=== PATIENT | male | born 1970 | race Two or more races ===

== ENCOUNTER 2025-03-13 19:14 | Inpatient (IN) | payer MEDICAID, OTHER ==
[~2025-03-13] VITALS: Ht 170.2 cm; Wt 83.7 kg
[2025-03-13] MEDS: HYDROcodone-ACET 5/325MG TAB PO ONE (20:48)
[2025-03-13] MEDS: IBUPROFEN 800 MG TAB PO ONE (20:48)
[2025-03-13 21:14] LABS: Alanine Aminotransferase 21 U/L (7-40); Albumin 4.7 g/dL (3.2-4.8); Alkaline Phosphatase 83 U/L (46-116); Anion Gap 9 (5-15); BUN/Creatinine Ratio 10.2 (10.0-20.0); Blood Urea Nitrogen 14 mg/dL (9-23); Calcium 9.6 mg/dL (8.7-10.4); Carbon Dioxide 27 mmol/L (20-31); Chloride 104 mmol/L (98-107); Potassium 3.9 mmol/L (3.5-5.1); Sodium 140 mmol/L (136-145); Total Protein 7.8 g/dL (5.7-8.2)
[2025-03-13 21:15] LABS: Bilirubin, Total 0.5 mg/dL (0.2-1.0); Hematocrit 45.7 % (41.0-53.0); Hemoglobin 16.1 g/dL (13.5-17.5); Mean Corpuscular Hemoglobin 29.7 pg (28.0-32.0); Mean Corpuscular Volume 84.3 fL (80.0-100.0); Nucleated Red Blood Cells % 0.0 %
[2025-03-13 21:26] LABS: Glucose 108 mg/dL (74-106)
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
[2025-03-13 22:59] LABS: INR 0.97 (0.9-1.15); Partial Thromboplastin Time 33.5 SEC (24.5-34.5); Prothrombin Time 10.3 sec (9.3-11.8)
[2025-03-13] MEDS: SODIUM CHLORIDE 0.9% 1,000 ML IV ONE (23:07)
[2025-03-13] MEDS: PIPERACILLIN-TAZOB 3.375GM 100 ML IV ONE (23:25)
[2025-03-13] MEDS ORDERED: MORPHINE SULFATE INJ 2 MG/ml SYRG IV PRN (23:30)
[2025-03-13] MEDS ORDERED: NITROGLYCERIN 0.4 MG SL TAB SL PRN (23:30)
[2025-03-13] MEDS ORDERED: DOCUSATE SOD 100 MG CAP PO PRN (23:30)
[2025-03-13] MEDS ORDERED: ONDANSETRON HCL 4 MG/2 ML VIAL IV PRN (23:30)
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
[2025-03-13 23:54] VITALS: O2SAT 100
[2025-03-14] VITALS (11 sets, daily range): BP systolic 106–133; BP diastolic 65–90; PULSE 53–98; RESP 14–36; TEMP 97.8–102.7; O2SAT 87–100
[2025-03-14] MEDS: SODIUM CHLORIDE 0.9% 1,000 ML IV SCH ×2 (00:23→18:24)
[2025-03-14] MEDS ORDERED: SODIUM CHLORIDE 0.9% 1,000 ML IV SCH (07:45)
[2025-03-14 08:26] LABS: Hematocrit 42.7 % (41.0-53.0); Hemoglobin 14.4 g/dL (13.5-17.5); Mean Corpuscular Hemoglobin 28.5 pg (28.0-32.0); Mean Corpuscular Volume 84.4 fL (80.0-100.0); Nucleated Red Blood Cells % 0.0 %
[2025-03-14 08:41] LABS: INR 1.02 (0.9-1.15); Partial Thromboplastin Time 34.9 SEC (24.5-34.5); Prothrombin Time 10.8 sec (9.3-11.8)
[2025-03-14 08:49] LABS: Alanine Aminotransferase 17 U/L (7-40); Albumin 4.0 g/dL (3.2-4.8); Alkaline Phosphatase 68 U/L (46-116); Anion Gap 10 (5-15); BUN/Creatinine Ratio 9.9 (10.0-20.0); Bilirubin, Total 0.5 mg/dL (0.2-1.0); Blood Urea Nitrogen 11 mg/dL (9-23); Calcium 8.7 mg/dL (8.7-10.4); Carbon Dioxide 23 mmol/L (20-31); Chloride 106 mmol/L (98-107); Glucose 105 mg/dL (74-106); Potassium 3.6 mmol/L (3.5-5.1); Sodium 139 mmol/L (136-145); Total Protein 6.7 g/dL (5.7-8.2)
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
[2025-03-14] MEDS ORDERED: ROCURONIUM 10MG/ML 10ML VIAL IV ONE (11:08)
[2025-03-14] MEDS ORDERED: fentaNYL CITRATE 100 MCG/2 ML VL ONE (11:16)
[2025-03-14] MEDS ORDERED: MIDAZOLAM HCL 2MG/2ML 2ml VIAL (1mg/ml) ONE (11:16)
[2025-03-14] MEDS: LIDOCAINE W/ EPINEPHRINE 1% 20ML VIAL ONE (12:13)
[2025-03-14] MEDS ORDERED: HYDROmorphone HCL 2 MG/ML VL/or syr ONE ×2 (12:14→13:44)
[2025-03-14] MEDS ORDERED: ONDANSETRON HCL 4 MG/2 ML VIAL ONE (12:41)
[2025-03-14] MEDS ORDERED: GLYCOPYRROLATE 0.2 MG/ML 1ML VIAL ONE (12:58)
[2025-03-14] MEDS ORDERED: PROPOFOL 10 MG/ML 20 ML IV ONE (12:59)
[2025-03-14] MEDS ORDERED: NEOSTIGMINE 1 MG/ML INJ (10mg/10ML VIAL) ONE (12:59)
[2025-03-14] MEDS ORDERED: ONDANSETRON HCL 4 MG/2 ML VIAL IV PRN (13:15)
[2025-03-14] MEDS ORDERED: HYDROmorphone HCL 2 MG/ML VL/or syr IV PRN (13:15)
[2025-03-14] MEDS ORDERED: ACETAMINOPHEN IV 100 ML IV ONE (13:44)
[2025-03-14] MEDS: ACETAMINOPHEN IV 1000 MG/100ML (10MG/ML) IV ONE (13:45)
--- NOTE | 2025-03-14 13:45 | DVHOP2 ---
Operative Report - 2 Report Details Date: 03/14/25 Preop Diagnosis: Acute appendicitis Postop Diagnosis: Gangrenous appendicitis Surgeon: Lia Posadas MD Microphone Operator: None Anesthesiologist: Dr. Dallas Anesthesia: General, Local Drains: 15 Armenian Hua drain Consent: The surgery and its risks including but not limited to infection, bleeding requiring possible blood transfusion with the risk of hepatitis or HIV infection, possible open surgery, possible perioperative [place] or stroke, possibility that the abdominal pain is caused by different intra-abdominal pathology other than acute appendicitis in which case we will proceed with the appendectomy if it is safe to do so and then treat the problem according to intraoperative findings were explained to the patient. All questions were answered to his satisfaction. He expressed verbal understanding and wished to proceed with the surgery. Complications: None Estimated Blood Loss: 30 mL Fluids: 1700 mL Name of Procedure Performed Laparoscopic appendectomy Procedure Details Procedure Details: After induction of general anesthesia, a Perkins catheter was placed by the OR nursing staff. Patient's abdomen was then prepped and draped in standard surgical fashion. A small infraumbilical incision was made and this incision was taken through the abdominal wall down to the fascia which was opened sharply. Peritoneum was then bluntly divided gaining access to the intra- abdominal cavity. Interrupted 0 Vicryl sutures were placed through the fascial incision and using an open technique, Iman trocar was introduced and secured using the Vicryl sutures. Abdomen was insufflated to 15 mmHg and camera was inserted. Visual examination of the intestine under the fascial incision appeared normal without injury. Under direct visualization, a 5 mm bladeless trocar was placed in the left lower quadrant and a 2nd 5 mm bladeless trocar was placed in the suprapubic region both under direct visualization. Examination of the right lower quadrant revealed diffuse phlegmon this changes. Small intestine had to be peeled off the peritoneum to revealed the tip of the appendix which appeared to be very dilated and inflamed. There was tremendous amount of inflammatory adhesions in the area and some time was taken to free up the terminal ileum from the appendix. The mesoappendix was very thickened. This was stapled and divided using an endovascular stapler towards the base of the appendix. However the base of the appendix appeared to be very inflamed as well as the tip of the cecum. Instead of attempting to divide the appendix at the cecum which would have required mobile fixation of the cecum which was basically adherent to the peritoneum due to inflammatory changes and also due to concern for possible perforation due to the thickened tissue in this area, instead perform partial cecectomy, an endo stapler was used to staple across the base of the pancreas as close to the cecum as possible however there was a small appendiceal that was left behind. The appendix was then removed from the abdominal cavity using an endo pouch bag and sent off the surgical field. Abdomen was then re-insufflated and staple line was examined. It appeared intact without bleeding or leaks. There was small amount of serosanguineous fluid collected in the pelvis which was aspirated. Pelvic area was then irrig ated until fluid was clear. A 15 Armenian Hua drain was placed into the pelvis and brought along the right gutter up to the base of the cecum. The other end of the drain was placed through the suprapubic trocar site and secured to the skin using 3-0 nylon sutures. Trocars were then removed under direct visualization as the abdomen was deflated. Additional interrupted 0 Vicryl s utures were placed through the infraumbilical fascial incision and the sutures were tied down closing off the infraumbilical fascia. Surgical sites were irrigated injected with 20 mL of 0.25% Marcaine with epinephrine. Skin incisions were closed using blu. Surgical sites were cleaned and dried and dressings were applied. Sponge, needle, instrument count at the end of the case were reported to be correct by the nursing staff. The patient tolerated procedure well and was awake, extubated and transferred to recovery in stable condition. Specimen: Appendix Condition Stable Disposition Still a Patient LIA POSADAS MD Mar 14, 2025 13:45
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
[2025-03-14] MEDS: HYDROmorphone HCL 2 MG/ML VL/or syr IV PRN (16:12)
[2025-03-14] MEDS: ACETAMINOPHEN 325 MG TAB PO PRN (19:44)
[2025-03-14] MEDS: MORPHINE SULFATE INJ 2 MG/ml SYRG IV PRN (19:45)
[2025-03-14] MEDS: SODIUM CHLORIDE 0.9% 500 ML IV ONE (21:50)
[2025-03-14 21:51] LABS: Hematocrit 40.7 % (41.0-53.0); Hemoglobin 14.0 g/dL (13.5-17.5); Mean Corpuscular Hemoglobin 28.9 pg (28.0-32.0); Mean Corpuscular Volume 84.1 fL (80.0-100.0); Nucleated Red Blood Cells % 0.0 %
[2025-03-14 21:54] LABS: Chloride 105 mmol/L (98-107); Potassium 3.6 mmol/L (3.5-5.1); Sodium 139 mmol/L (136-145)
[2025-03-14 21:55] LABS: Anion Gap 12 (5-15); Carbon Dioxide 22 mmol/L (20-31)
[2025-03-14 22:00] LABS: BUN/Creatinine Ratio 8.6 (10.0-20.0)
[2025-03-14 22:01] LABS: Blood Urea Nitrogen 9 mg/dL (9-23); Calcium 8.4 mg/dL (8.7-10.4); Glucose 120 mg/dL (74-106)
[2025-03-15] VITALS (8 sets, daily range): BP systolic 123–137; BP diastolic 68–88; PULSE 60–93; RESP 16–19; TEMP 97.8–98.8; O2SAT 91–92
[2025-03-15] MEDS: HYDROcodone-ACET 5/325MG TAB PO PRN (05:47)
[2025-03-15 06:20] LABS: Chloride 104 mmol/L (98-107); Sodium 139 mmol/L (136-145)
[2025-03-15 06:21] LABS: Anion Gap 13 (5-15); Carbon Dioxide 22 mmol/L (20-31)
[2025-03-15 06:26] LABS: BUN/Creatinine Ratio 7.8 (10.0-20.0)
[2025-03-15 06:27] LABS: Blood Urea Nitrogen 8 mg/dL (9-23); Calcium 8.2 mg/dL (8.7-10.4); Glucose 120 mg/dL (74-106); Potassium 3.4 mmol/L (3.5-5.1)
[2025-03-15 06:34] LABS: Hematocrit 42.1 % (41.0-53.0); Hemoglobin 14.0 g/dL (13.5-17.5); Mean Corpuscular Hemoglobin 28.5 pg (28.0-32.0); Mean Corpuscular Volume 85.6 fL (80.0-100.0); Nucleated Red Blood Cells % 0.2 %
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
[2025-03-15] MEDS ORDERED: CLINIMIX PER PHARMACY 0 ML IV SCH (12:30)
--- NOTE | 2025-03-15 13:28 | DVHPN2 ---
Progress Note - Dictate Date Seen: Mar 15, 2025 Medical Necessity Reason Pt with a Central, PICC or Fol: No Subjective E: no major events o/n. c/o incisional pain. no flatus. vital signs Vital Sign Date Time Temp Pulse Resp B/P (MAP) Pulse Ox O2 Delivery O2 Flow Rate FiO2 03/15/25 12:54 98.8 60 16 124/87 (99) 92 98.8 03/15/25 08:05 Nasal Cannula* 2 28 Total Intake and Output 03/14/25 03/14/25 03/15/25 15:00 23:00 07:00 Intake Total 600 ml 500 ml Output Total 301 ml 0 ml 50 ml Balance -301 ml 600 ml 450 ml medications Current Medications Medications Dose Ordered Sig/Sade Route Start Time Stop Time Status Last Admin Dose Admin Ceftriaxone Sodium 50 ml @ 100 mls/hr DAILY@09 IV 03/14/25 09:00 03/15/25 08:38 100 MLS/HR Metronidazole 100 ml @ 100 mls/hr Q8HR IV 03/14/25 06:00 03/14/25 21:37 100 MLS/HR Acetaminophen/ Hydrocodone Bitart 1 tab Q4HP PRN PO 03/13/25 23:30 03/15/25 05:47 1 TAB Ondansetron HCl 4 mg Q4HP PRN IV 03/13/25 23:30 Acetaminophen 650 mg Q6HP PRN PO 03/13/25 23:30 03/14/25 19:44 650 MG Morphine Sulfate 2 mg Q4HPRN PRN IV 03/13/25 23:30 03/14/25 19:45 2 MG Sodium Chloride 1,000 ml @ 100 mls/hr Q10H IV 03/14/25 10:00 03/15/25 08:41 100 MLS/HR Amino Acids 0 ml @ 0 mls/hr PER PHARMACY IV 03/15/25 12:30 UNV objective GEN: NAD ABD: surgical dressings clean and dry. laboratory and microbiology Laboratory Tests 03/15/25 02:53 Test 03/15/25 02:53 Range/Units Serum Glucose 120 H 74-106 mg/dL Assessment/Plan A: 1. s/p lap appendectomy POD #1 with postop ileus P: 1. ambulate Plan discussed with: Patient LIA MANCUSO MD Mar 15, 2025 13:28
[2025-03-15] MEDS: POTASSIUM CHL 20MEQ/100ML 100 ML IV ONE (15:26)
[2025-03-15] MEDS: SODIUM CHLORIDE 0.9% 500 ML IV ONE (21:33)
[2025-03-15] MEDS ORDERED: AMINO ACID INFUSION IN D10W 1,000 ML IV SCH (22:00)
[2025-03-15] MEDS: InsuLIN REG 1unit/0.01ml Soln (100units/ml) SC SCH (23:47)
[2025-03-15] MEDS: ACCU-CHEK COMFORT CURVE STRIP VI SCH (23:48)
[2025-03-16] VITALS (8 sets, daily range): BP systolic 120–149; BP diastolic 91–98; PULSE 78–96; RESP 16–17; TEMP 97.9–98.8; O2SAT 92–94
[2025-03-16] MEDS ORDERED: ACCU-CHEK COMFORT CURVE STRIP VI SCH
[2025-03-16] MEDS ORDERED: DEXTROSE (50%) 50ML SYRG IV SCH ×2
[2025-03-16] MEDS ORDERED: InsuLIN REG 1unit/0.01ml Soln (100units/ml) SC SCH
[2025-03-16 06:45] LABS: Hematocrit 41.6 % (41.0-53.0); Hemoglobin 14.4 g/dL (13.5-17.5); Mean Corpuscular Hemoglobin 28.7 pg (28.0-32.0); Mean Corpuscular Volume 83.1 fL (80.0-100.0); Nucleated Red Blood Cells % 0.1 %
[2025-03-16 06:57] LABS: Albumin 3.7 g/dL (3.2-4.8); Alkaline Phosphatase 58 U/L (46-116); Anion Gap 12 (5-15); BUN/Creatinine Ratio 12.2 (10.0-20.0); Blood Urea Nitrogen 10 mg/dL (9-23); Carbon Dioxide 21 mmol/L (20-31); Chloride 106 mmol/L (98-107); Magnesium 2.1 mg/dL (1.6-2.6); Potassium 3.8 mmol/L (3.5-5.1); Sodium 139 mmol/L (136-145); Total Protein 6.1 g/dL (5.7-8.2)
[2025-03-16 06:58] LABS: Bilirubin, Total 0.6 mg/dL (0.2-1.0)
[2025-03-16 06:59] LABS: Alanine Aminotransferase < 9 U/L (7-40); Calcium 8.0 mg/dL (8.7-10.4); Glucose 118 mg/dL (74-106)
--- NOTE | 2025-03-16 08:44 | DVHPN2 ---
Progress Note - Dictate Date Seen: Mar 16, 2025 Medical Necessity Reason Pt with a Central, PICC or Fol: No Subjective E: no major events o/n. emesis yeasterday but today he feels better. ambulating. +flatus vital signs Vital Sign Date Time Temp Pulse Resp B/P (MAP) Pulse Ox O2 Delivery O2 Flow Rate FiO2 03/16/25 05:37 89 16 130/90 03/16/25 05:00 98.1 94 98.1 03/15/25 20:00 Room Air* 0 21 Total Intake and Output 03/15/25 03/15/25 03/16/25 15:00 23:00 07:00 Intake Total 50 ml 200 ml 1100 ml Output Total 275 ml 700 ml Balance -225 ml -500 ml 1100 ml medications Current Medications Medications Dose Ordered Sig/Sade Route Start Time Stop Time Status Last Admin Dose Admin Ceftriaxone Sodium 50 ml @ 100 mls/hr DAILY@09 IV 03/14/25 09:00 03/15/25 08:38 100 MLS/HR Metronidazole 100 ml @ 100 mls/hr Q8HR IV 03/14/25 06:00 03/16/25 05:02 100 MLS/HR Acetaminophen/ Hydrocodone Bitart 1 tab Q4HP PRN PO 03/13/25 23:30 03/15/25 05:47 1 TAB Ondansetron HCl 4 mg Q4HP PRN IV 03/13/25 23:30 Acetaminophen 650 mg Q6HP PRN PO 03/13/25 23:30 03/14/25 19:44 650 MG Morphine Sulfate 2 mg Q4HPRN PRN IV 03/13/25 23:30 03/16/25 05:07 2 MG Sodium Chloride 1,000 ml @ 100 mls/hr Q10H IV 03/14/25 10:00 03/16/25 05:07 100 MLS/HR Amino Acids 0 ml @ 0 mls/hr PER PHARMACY IV 03/15/25 12:30 Amino Acids/ Electrolytes/ Dextrose 1,000 ml @ 41 mls/hr DAILY@2200 IV 03/16/25 22:00 Dextrose 50 ml UD IV 03/16/25 00:00 Diagnostic Test (Pha) 1 strip Q6HR 03/16/25 00:00 Insulin Human Regular FOLLOW SLIDING SCALE Q6HR SC 03/16/25 00:00 objective GEN: NAD ABD: surgical incision clean and dry. min ecchymosis. drain 60 mL serous drainage laboratory and microbiology Laboratory Tests 03/16/25 05:52 Test 03/16/25 05:52 Range/Units Serum Glucose 118 H 74-106 mg/dL Assessment/Plan A: 1. s/p lap appendectomy POD #2 with resolving ileus P: 1. clear liquid diet. Dietary Evaluation Review Comments: advance diet to clear liquid, then soft diet as tolearted Expected Outcomes/Goals: avoid fast wt loss Plan discussed with: Patient LIA MANCUSO MD Mar 16, 2025 08:44
[2025-03-16] MEDS: SODIUM PHOSPHATES 20 MEQ in SODIUM CHL 0.9% 100 ML IV ONE (12:08)
[2025-03-16] MEDS: POTASSIUM PHOSPHATE 22 MEQ in SODIUM CHL 0.9% 100 ML IV ONE (16:11)
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
[2025-03-16] MEDS ORDERED: AMINO ACID INFUSION IN D10W 1,000 ML IV SCH (22:00)
[2025-03-17 01:00] VITALS: BP 126/89; PULSE 88; RESP 18; TEMP 98.5; O2SAT 91
[2025-03-17 05:00] VITALS: BP 132/69; PULSE 82; RESP 16; TEMP 98; O2SAT 95
[2025-03-17 05:51] LABS: Hematocrit 46.7 % (41.0-53.0); Hemoglobin 16.0 g/dL (13.5-17.5); Mean Corpuscular Hemoglobin 28.5 pg (28.0-32.0); Mean Corpuscular Volume 83.4 fL (80.0-100.0); Nucleated Red Blood Cells % 0.0 %
[2025-03-17 06:00] LABS: Alanine Aminotransferase 12 U/L (7-40); Albumin 3.7 g/dL (3.2-4.8); Alkaline Phosphatase 56 U/L (46-116); Anion Gap 11 (5-15); BUN/Creatinine Ratio 9.1 (10.0-20.0); Bilirubin, Total 0.5 mg/dL (0.2-1.0); Carbon Dioxide 23 mmol/L (20-31); Chloride 105 mmol/L (98-107); Magnesium 2.1 mg/dL (1.6-2.6); Sodium 139 mmol/L (136-145); Total Protein 6.2 g/dL (5.7-8.2)
[2025-03-17 06:01] LABS: Blood Urea Nitrogen 8 mg/dL (9-23); Calcium 8.3 mg/dL (8.7-10.4); Glucose 120 mg/dL (74-106); Potassium 3.4 mmol/L (3.5-5.1)
[2025-03-17 08:00] VITALS: PULSE 88
[2025-03-17 08:47] VITALS: BP 136/98; PULSE 48; RESP 18; TEMP 98.2; O2SAT 93
--- NOTE | 2025-03-17 11:52 | DVHPN2 ---
Progress Note Date Seen: Mar 17, 2025 Medical Necessity Reason Pt with a Central, PICC or Fol: No Objective vital signs Vital Sign Date Time Temp Pulse Resp B/P (MAP) Pulse Ox O2 Delivery O2 Flow Rate FiO2 03/17/25 08:47 98.2 48 18 136/98 (111) 93 98.2 03/17/25 08:05 Room Air* 0 21 Total Intake and Output 03/16/25 03/16/25 03/17/25 15:00 23:00 07:00 Intake Total 50 ml 1305 ml 400 ml Output Total 10 ml 125 ml Balance 40 ml 1180 ml 400 ml medications Current Medications Medications Dose Ordered Sig/Sade Route Start Time Stop Time Status Last Admin Dose Admin Ceftriaxone Sodium 50 ml @ 100 mls/hr DAILY@09 IV 03/14/25 09:00 03/17/25 09:52 100 MLS/HR Metronidazole 100 ml @ 100 mls/hr Q8HR IV 03/14/25 06:00 03/17/25 05:26 100 MLS/HR Acetaminophen/ Hydrocodone Bitart 1 tab Q4HP PRN PO 03/13/25 23:30 03/15/25 05:47 1 TAB Ondansetron HCl 4 mg Q4HP PRN IV 03/13/25 23:30 Acetaminophen 650 mg Q6HP PRN PO 03/13/25 23:30 03/14/25 19:44 650 MG Morphine Sulfate 2 mg Q4HPRN PRN IV 03/13/25 23:30 03/16/25 21:19 2 MG Sodium Chloride 1,000 ml @ 100 mls/hr Q10H IV 03/14/25 10:00 03/16/25 05:07 100 MLS/HR laboratory and microbiology Laboratory Tests 03/17/25 04:59 Test 03/17/25 04:59 Range/Units Serum Glucose 120 H 74-106 mg/dL Problem List/Assessment/Plan Problem List/Assessment/Plan 03/17/[address] Posadas: patiernty improving, stable hemodynamically, no nausea, wounds ok, drainage non purulent, abdomen appropriately tender, may be discharged, instructions given Plan discussed with: Patient, Spouse Dietary Evaluation Review Comments: advance diet to clear liquid, then soft diet as tolearted Expected Outcomes/Goals: avoid fast wt loss SUZETTE INGRAM MD Mar 17, 2025 11:52
[2025-03-17 12:54] VITALS: BP 116/90; PULSE 84; RESP 18; TEMP 98; O2SAT 90
[2025-03-17] MEDS ORDERED: AUG875T PO (13:22)
[2025-03-17] MEDS ORDERED: HYDR-4902 PO (13:22)
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
== END 2025-03-17 16:19 | disposition home or self-care (01) | DRG 234 ==
LOC: ER 19:14 → OVERFLOW 23:29 → TELE-CENTR 03-14 16:54
PROVIDERS: ADMIT Student in an Organized Health Care Education/Training Program; ATTEND Student in an Organized Health Care Education/Training Program
PROC: 0DTJ4ZZ Resection of Appendix, Percutaneous Endoscopic Approach (ICD-10-PCS; principal; 2025-03-14 11:11)
DX: K35.891 Other acute appendicitis without perforation, with gangrene (principal); N17.0 Acute kidney failure with tubular necrosis; K56.7 Ileus, unspecified; K91.89 Other postprocedural complications and disorders of digestive system; V43.52XA Car driver injured in collision with other type car in traffic accident, initial encounter; Y93.89 Activity, other specified; Y92.89 Other specified places as the place of occurrence of the external cause; Y99.8 Other external cause status; R71.0 Precipitous drop in hematocrit
CPT/HCPCS: 36415; 72040; 74176; 80048; 80053; 83605; 83735; 84100; 85025; 85610; 85730; 86850; 86900; 86901; 96365; G0378; J0131; J2250; J2405; J2543; J2704; J3480; J3490